=== PATIENT | female | born 1945 | race Caucasian/White ===

== ENCOUNTER 2016-09-15 16:57 | Emergency (ER) | payer MEDICARE, OTHER ==
[2016-09-15] MEDS ORDERED: IBUPROFEN 800 MG TABLET PO STA (19:21)
[2016-09-15] MEDS ORDERED: IBUPROFEN 800 MG TABLET PO ONE (19:21)
== END 2016-09-15 19:25 | disposition home or self-care (01) ==
DX: S20.211A Contusion of right front wall of thorax, initial encounter (principal); S80.01XA Contusion of right knee, initial encounter; S63.642A Sprain of metacarpophalangeal joint of left thumb, initial encounter; W01.0XXA Fall on same level from slipping, tripping and stumbling without subsequent striking against object, initial encounter; Y92.481 Parking lot as the place of occurrence of the external cause; I10 Essential (primary) hypertension; E03.9 Hypothyroidism, unspecified; K21.9 Gastro-esophageal reflux disease without esophagitis; M19.90 Unspecified osteoarthritis, unspecified site; Z79.82 Long term (current) use of aspirin
CPT/HCPCS: 71101; 73110; 73562; 81003; 99283; 99284; A9270

== ENCOUNTER 2016-09-22 15:27 | Outpatient (CLI) | payer MEDICARE, OTHER | END 2016-09-22 15:28 | disposition home or self-care (01) | DX: M50.30 Other cervical disc degeneration, unspecified cervical region (principal); M47.892 Other spondylosis, cervical region; M51.36 Other intervertebral disc degeneration, lumbar region; M47.896 Other spondylosis, lumbar region; M43.16 Spondylolisthesis, lumbar region ==

== ENCOUNTER 2017-05-09 10:52 | Outpatient (CLI) | payer MEDICARE, OTHER ==
--- NOTE | 2017-05-09 12:05 | XRAY Report ---
EXAM: CHEST RADIOGRAPHY EXAM DATE: 05/09/2017 11:20 AM. CLINICAL HISTORY: CHEST PAIN, GERD. COMPARISON: Chest radiograph 09/15/2016. TECHNIQUE: 2 views. FINDINGS: Lungs/Pleura: No focal opacities evident. No pleural effusion. No pneumothorax. Normal volumes. Mediastinum: Stable. Hiatal hernia. Other: None. IMPRESSION: 1. No acute radiographic cardiopulmonary process 2. Hiatal hernia [facility] Referring Provider Line: [phone] SITE ID: [id number]
== END 2017-05-09 10:53 | disposition home or self-care (01) ==
LOC: DI 10:52
PROVIDERS: ATTEND Physician Assistant
DX: R07.9 Chest pain, unspecified (principal); K21.9 Gastro-esophageal reflux disease without esophagitis; Z87.891 Personal history of nicotine dependence; K44.9 Diaphragmatic hernia without obstruction or gangrene
CPT/HCPCS: 71020

== ENCOUNTER 2017-06-30 10:56 | Outpatient (CLI) | payer MEDICARE, OTHER ==
[2017-06-30 11:22] LABS: CREATININE 0.7 mg/dL (0.4-1.0)
[2017-06-30] MEDS ORDERED: IOPAMIDOL-300 100 ML VIAL ONE (11:24)
[2017-06-30] MEDS ORDERED: IOPAMIDOL-300 50 ML VIAL ONE (11:25)
[2017-06-30] MEDS ORDERED: IOPAMIDOL-300 50 ML VIAL PO ONE (13:37)
[2017-06-30] MEDS ORDERED: IOPAMIDOL-300 100 ML VIAL IVP ONE (13:38)
--- NOTE | 2017-06-30 17:16 | CT Report ---
CT OF THE ABDOMEN AND PELVIS WITH CONTRAST: 06/30/2017 CLINICAL INDICATION: Nausea, diarrhea. TECHNIQUE: Axial CT images of the abdomen and pelvis were obtained with 100 mL Isovue 300 intravenously as well as oral contrast. In accordance with CT protocol optimization, one or more of the following dose reduction techniques were utilized for this exam: Automated exposure control, adjustment of mA and/or KV based on patient size, or use of iterative reconstructive technique. No previous CT is available for comparison. FINDINGS: Limited evaluation of the lung bases demonstrates a calcified granuloma at the right base. A moderate hiatal hernia is present. ABDOMEN: The liver, spleen, pancreas, kidneys and adrenal glands are unremarkable. The gallbladder is not dilated. No bowel dilatation, free gas, or free fluid is present. No abdominal adenopathy is seen. PELVIS: Postoperative changes of anterior abdominal wall hernia repair are noted. Postoperative changes of hysterectomy are present. No pelvic adenopathy or free fluid is seen. Sigmoid diverticulosis is present, without CT evidence of diverticulitis. Osseous structures demonstrate degenerative changes. IMPRESSION: MODERATE HIATAL HERNIA. POSTOPERATIVE CHANGES. TD: 06/30/2017 17:14
== END 2017-06-30 10:57 | disposition home or self-care (01) ==
LOC: LAB 10:56
PROVIDERS: ATTEND Physician Assistant
DX: K44.9 Diaphragmatic hernia without obstruction or gangrene (principal)
CPT/HCPCS: 36415; 74177; 82565; Q9967

== ENCOUNTER 2017-07-20 11:34 | Outpatient (CLI) | payer MEDICARE, OTHER ==
--- NOTE | 2017-07-20 16:25 | Nuclear Medicine Report ---
EXAM: BONE SCAN EXAM DATE: 07/20/2017 03:53 PM. CLINICAL HISTORY: BONE PAIN L CHEST, HX BREAST CANCER. COMPARISON: CT abdomen/pelvis 06/30/2017. CT chest 03/25/2009. TECHNIQUE: Following the intravenous administration of 31.2 mCi of technetium 99m MDP and an appropri ate delay, a whole-body scan was performed in anterior and posterior projections. Site-specific spot views of the region of interest were obtained in various projections. FINDINGS: Normal renal radiotracer uptake and bladder activity. Normal soft tissue activity. Overall normal osseous uptake. There is mild focal uptake corresponding to adjacent right anterolateral fifth and sixth ribs, nonspe cific but may be posttraumatic. Mild multilevel lower thoracic and mid to lower lumbar spinal uptake, probably degenerative. Nonspecific mild periprosthetic uptake at the knees. IMPRESSION: 1. No definite scintigraphic evidence of osseous metastasis. 2. Mild focal uptake at the adjacent right anterolateral fifth and sixth ribs, nonspecific but may be posttraumatic. Consider cross-sectional imaging correlation. 3. Multifocal probable degenerative uptake as noted above. [facility] Referring Provider Line: [phone] SITE ID: [id number]
== END 2017-07-20 11:35 | disposition home or self-care (01) ==
LOC: DI 11:34
PROVIDERS: ATTEND Physician Assistant
DX: M89.8X9 Other specified disorders of bone, unspecified site (principal); Z85.3 Personal history of malignant neoplasm of breast
CPT/HCPCS: 78306; A9503

== ENCOUNTER 2020-04-21 16:00 | Outpatient (CLI) | payer MEDICARE, OTHER ==
--- NOTE | 2020-04-21 16:41 | XRAY Report ---
PROCEDURE: Chest 2 View X-Ray INDICATIONS: Dyspnea TECHNIQUE: 2 view(s) of the chest. COMPARISON: 10/17/2013 FINDINGS: Surgical changes and devices: None. Lungs and pleura: Hyperexpanded and flattening the lungs with hyperlucent lung apices indicative of e mphysema. Findings are similar to 10/17/2013 comparison. Lungs are otherwise clear. No pleural effusio n or pneumothorax. Mediastinum: Mediastinal contours are normal. Heart size is normal. Bones and chest wall: No suspicious bony abnormalities. Soft tissues appear unremarkable. IMPRESSION: Findings of mild COPD and emphysema. No acute process. Reviewed by: Ted Ruiz MD on 04/21/2020 4:39 PM PST Approved by: Ted Ruiz MD on 04/21/2020 4:39 PM PST Station ID: [id number]
== END 2020-04-21 16:01 | disposition home or self-care (01) ==
LOC: DI 16:00
PROVIDERS: ATTEND Nurse Practitioner Family
DX: J43.9 Emphysema, unspecified (principal)

== ENCOUNTER 2021-04-26 07:11 | Outpatient (CLI) | payer MEDICARE, OTHER ==
[2021-04-26 15:02] LABS: BASOPHILS % (AUTO) 0.5 %; EOSINOPHILS % (AUTO) 0.5 %; HCT - HEMATOCRIT 40.7 % (37.0-47.0); HGB - HEMOGLOBIN 13.2 g/dL (12.0-16.0); LYMPHOCYTES # (AUTO) 1.4 10^3/uL (1.5-3.5); LYMPHOCYTES % (AUTO) 21.7 %; MEAN CORPUSCULAR HEMOGLOBIN 27.1 pg (27.0-31.0); MEAN CORPUSCULAR HGB CONC 32.4 g/dL (32.0-36.0); MEAN CORPUSCULAR VOLUME 83.6 fL (81.0-99.0); MEAN PLATELET VOLUME 10.6 fL (7.9-10.8); MONOCYTES # (AUTO) 0.5 10^3/uL (0.0-1.0); MONOCYTES % (AUTO) 7.4 %; NEUTROPHILS # (AUTO) 4.6 10^3/uL (1.5-6.6); NEUTROPHILS % (AUTO) 69.7 %; PLT - PLATELET COUNT 316 10^3/uL (130-450); RED BLOOD COUNT 4.87 10^6/uL (4.20-5.40); RED CELL DISTRIBUTION WIDTH 13.7 % (12.0-15.0); WHITE BLOOD COUNT 6.6 x10^3/uL (4.8-10.8)
[2021-04-26 15:26] LABS: ALBUMIN/GLOBULIN RATIO 1.3 (1.0-2.2); BILIRUBIN,TOTAL 0.5 mg/dL (0.2-1.0); CALCIUM 9.6 mg/dL (8.5-10.3); CREATININE 0.7 mg/dL (0.4-1.0); MAGNESIUM 1.7 mg/dL (1.7-2.8); POTASSIUM 3.8 mmol/L (3.5-5.0); TOTAL PROTEIN 7.1 g/dL (6.7-8.2)
[2021-04-26 15:36] LABS: THYROID STIMULATING HORMONE 3.14 uIU/mL (0.34-5.60)
== END 2021-04-26 07:12 | disposition home or self-care (01) ==
LOC: LAB.S 07:11
PROVIDERS: ATTEND Physician Assistant Medical
DX: R00.2 Palpitations (principal)
CPT/HCPCS: 36415; 80053; 83735; 84443; 85025

== ENCOUNTER 2021-05-29 09:03 | Outpatient (CLI) | payer MEDICARE, OTHER ==
[2021-05-29 15:18] LABS: BASOPHILS % (AUTO) 0.5 %; EOSINOPHILS # (AUTO) 0.1 10^3/uL (0.0-0.7); EOSINOPHILS % (AUTO) 1.2 %; HCT - HEMATOCRIT 40.7 % (37.0-47.0); HGB - HEMOGLOBIN 13.3 g/dL (12.0-16.0); LYMPHOCYTES # (AUTO) 1.7 10^3/uL (1.5-3.5); LYMPHOCYTES % (AUTO) 23.6 %; MEAN CORPUSCULAR HEMOGLOBIN 27.2 pg (27.0-31.0); MEAN CORPUSCULAR HGB CONC 32.7 g/dL (32.0-36.0); MEAN CORPUSCULAR VOLUME 83.2 fL (81.0-99.0); MEAN PLATELET VOLUME 10.7 fL (7.9-10.8); MONOCYTES # (AUTO) 0.5 10^3/uL (0.0-1.0); MONOCYTES % (AUTO) 7.4 %; NEUTROPHILS # (AUTO) 4.9 10^3/uL (1.5-6.6); NEUTROPHILS % (AUTO) 66.9 %; PLT - PLATELET COUNT 280 10^3/uL (130-450); RED BLOOD COUNT 4.89 10^6/uL (4.20-5.40); RED CELL DISTRIBUTION WIDTH 14.4 % (12.0-15.0); WHITE BLOOD COUNT 7.3 x10^3/uL (4.8-10.8)
[2021-05-29 15:40] LABS: ALBUMIN/GLOBULIN RATIO 1.2 (1.0-2.2); BILIRUBIN,TOTAL 0.4 mg/dL (0.2-1.0); CALCIUM 9.6 mg/dL (8.5-10.3); CREATININE 0.6 mg/dL (0.4-1.0); POTASSIUM 3.7 mmol/L (3.5-5.0); TOTAL PROTEIN 7.3 g/dL (6.7-8.2)
[2021-05-29 22:09] LABS: ESTIMATED AVERAGE GLUCOSE 126 mg/dL (70-100)
== END 2021-05-29 09:04 | disposition home or self-care (01) ==
LOC: LAB.S 09:03
PROVIDERS: ATTEND Internal Medicine
DX: R74.8 Abnormal levels of other serum enzymes (principal); R73.01 Impaired fasting glucose; L08.9 Local infection of the skin and subcutaneous tissue, unspecified
CPT/HCPCS: 36415; 80053; 83036; 85025

== ENCOUNTER 2021-09-12 08:00 | Outpatient (CLI) | payer MEDICARE, OTHER ==
--- NOTE | 2021-09-12 13:11 | XRAY Report ---
PROCEDURE: Shoulder 3 View RT INDICATIONS: PAIN IN RIGHT SHOULDER TECHNIQUE: 3 views of the shoulder were acquired. COMPARISON: None. FINDINGS: Bones: No fractures or dislocations. No suspicious bony lesions. Visualized ribs appear intact. M ild glenohumeral joint space narrowing Soft tissues: No suspicious soft tissue calcifications. IMPRESSION: Mild osteoarthritis without fracture or dislocation Reviewed by: Dax Hoang MD on 09/12/2021 12:09 PM [facility] Approved by: Dax Hoang MD on 09/12/2021 12:09 PM [facility] Station ID: [id number]
== END 2021-09-12 23:59 | disposition home or self-care (01) ==
LOC: DI.S 08:00
PROVIDERS: ATTEND Registered Nurse
DX: M19.011 Primary osteoarthritis, right shoulder (principal)

== ENCOUNTER 2021-12-14 10:14 | Emergency (ER) | payer MEDICARE, OTHER ==
--- OUTSIDE RECORDS SUMMARY | 2021-12-14 10:27 | EXTERNAL MEDICAL SUMMARY RPT | Continuity of Care Document ---
:1945 Author Organization [facility] Address [address] [place] [address] Phone Allergies No information. Encounters No information. Functional Status No information. Immunizations No information. Medications date description facility [id number] esomeprazole magnesium [facility] [id number]+0000 clindamycin hcl [facility] [place] [id number]+0000 gabapentin [facility] [phone]+0000 gabapentin [facility] [place] [phone]+0000 gabapentin [facility] [phone]+0000 gabapentin [facility] [place] [phone]+0000 sertraline [facility] [phone]+0000 sertraline [facility] [place] [phone]+0000 gabapentin [facility] [phone]+0000 gabapentin [facility] [place] [phone]+0000 gabapentin [facility] [phone]+0000 gabapentin [facility] [phone]+0000 esomeprazole magnesium [facility] [phone]+0000 clindamycin hcl [facility] Problems No information. Procedures date description facility [id number] Visit Code Hold [facility] [place] [phone]+0000 Visit Code Hold [facility] [place] [phone]+0000 Visit Code Hold [facility] [place] Results/Labs No information. Social History date description facility +0000 Former smoker [facility] [place] [phone] Former smoker [facility] Vital Signs date measurement value units [id number]+0000 BMI BMI 29.97 kg/m2 52301904383127+0000 BP_diastolic BP_diastolic 70 mm[H g] 54630783441837+0000 BP_systolic BP_systolic 133 mm[Hg] 62341721656686+0000 heart_rate heart_rate 70 /min 40207746450343+0000 height_metric height_metric 162.56 cm 99961381884744+0000 height_standard height_standard 64 in [id number]+0000 respiration_rate respiration_rate 16 /min [id number]+0000 temperature_metric temperature_metric 36.5 C [id number]+0000 temperature_standard temperature_standard 9 7.7 F 57188305613429+0000 weight_metric weight_metric 78.93 kg 51169400633195+0000 weight_standard weight_standard 174 lb [id number]+0000 BMI BMI 29.97 kg/m2 62494204080110+0000 BP_diastolic BP_diastolic 71 mm[H g] 71960511514427+0000 BP_systolic BP_systolic 138 mm[Hg] 30366043301928+0000 heart_rate heart_rate 65 /min 25418101990869+0000 height_metric height_metric 162.56 cm 35423352462237+0000 height_standard height_standard 64 in 49938303148753+0000 respiration_rate respiration_rate 16 /min 49468586183103+0000 temperature_metric temperature_metric 36.56 C 42983032056086+0000 temperature_standard temperature_standard 9 7.8 F 65731002064942+0000 weight_metric weight_metric 78.93 kg 77322392294810+0000 weight_standard weight_standard 174 lb
--- NOTE | 2021-12-14 13:13 | ED Physician Documentation ---
History of Present Illness - Stated complaint Stated Complaint: LT EYE SWELLING - Chief complaint Chief Complaint: Heent - Additonal information Additional information: 76-year-old female comes to the emergency department for evaluation of worsening left eye redness and swelling. She went to a local walk-in clinic yesterday and was given injection of likely ceftriaxone followed by prescription for clindamycin for what was thought to be Silver orbital cellulitis. Despite taking 3 doses of clindamycin and using warm compress she is having worsening erythema. She has an obvious stye on the upper lid. No history of similar. No fevers. Extraocular movements are preserved but she does have some pain with eye movement. No loss of vision or vision changes Review of Systems Constitutional: denies: Fever, Chills Eyes: reports: Other (Left periorbital erythema stye on the left upper lobe). denies: Loss of vision, Decreased vision Ears: reports: Reviewed and negative Nose: reports: Reviewed and negative Throat: reports: Reviewed and negative Cardiac: reports: Reviewed and negative Respiratory: reports: Reviewed and negative GI: reports: Reviewed and negative : reports: Reviewed and negative Skin: reports: Reviewed and negative PD PAST MEDICAL HISTORY - Past Medical History Cardiovascular: Hypertension, Murmur Respiratory: Pneumonia, Other Endocrine/Autoimmune: HyPOthyroidism, Other GI: GERD, Diverticulitis : Frequency HEENT: Other Psych: Depression, Anxiety Musculoskeletal: Osteoarthritis, Chronic back pain, Other Derm: Other - Past Surgical History General: Appendectomy, Colonoscopy Ortho: Knee replacement /[employer]: Dilation and currettage, Tubal ligation, Mastectomy HEENT: Cataracts, Other - Present Medications Home Medications: Ambulatory Orders Medication Instructions Recorded Confirmed Aspirin [Children's Aspirin] 81 mg PO DAILY 10/22/12 08/07/17 Cholecalciferol (Vitamin D3) 50,000 unit PO DAILY 10/22/12 08/07/17 [Vitamin D] Gabapentin [Neurontin] 1,200 mg PO HS 10/22/12 08/07/17 Levothyroxine [Synthroid] 0.125 mcg PO QDAC 10/22/12 08/07/17 Loratadine [Claritin] 10 mg PO DAILY 10/22/12 08/07/17 Lorazepam 0.5 mg PO DAILY 10/22/12 08/07/17 Omeprazole [Prilosec] 40 mg PO BID 10/22/12 08/07/17 Telmisartan [Micardis] 40 mg PO DAILY 10/22/12 08/07/17 Sertraline [Zoloft] 100 mg PO DAILY 10/22/14 08/07/17 Clindamycin [Cleocin] 450 mg PO TID #63 cap 12/14/21 - Allergies Allergies/Adverse Reactions: Allergies Allergy/AdvReac Type Severity Reaction Status Date / Time doxycycline Allergy Severe Anaphylaxis Verified 09/15/16 19:14 Sulfa (Sulfonamide Allergy Severe Hives Verified 09/15/16 19:14 Antibiotics) morphine AdvReac Intermediate Rash Verified 09/15/16 19:14 - Social History Does the pt smoke?: No Smoking Status: Never smoker Does the pt drink ETOH?: No Does the pt have substance abuse?: No - Immunizations Immunizations are current?: Yes PD ED PE EXPANDED - General General: Alert, No acute distress, Well developed/nourished - HEENT HEENT: PERRL, EOMI - Eyes Eyes: Eyelid swelling (Stye on the left mid upper lid. Generalized erythema swelling and mild induration around the left orbit. Extraocular movements norm al. Mild tenderness with palpation of the eye but the globe remained soft. PERRLA.), Eyelid erythema, Nl conjunctiva/sclera. No: Exudate - Cardiac Cardiac: Regular Rate, Radial strong equal, Pedal strong equal, Cap refill < 2 sec - Respiratory Respiratory: Clear to ausultation nevin. No: Distress, Labored - Abdomen Abdomen: Normal Bowel sounds - Neuro Neuro: Alert and Oriented X 3, CNII-XII intact - GCS Eye Opening: Spontaneous Motor: Obeys Commands Verbal: Oriented Total: 15 Results - Vitals Vitals: Vital Signs - 24 hr 12/14/21 12/14/21 10:27 14:30 Temperature 37.2 C Heart Rate 74 70 Respiratory 18 19 Rate Blood Pressure 150/71 H 137/57 H O2 Saturation 97 95 Oxygen O2 Source Room air - Labs Labs: Laboratory Tests 12/14/21 12/14/21 12/14/21 13:11 13:11 13:11 WBC 8.7 RBC 4.50 Hgb 12.5 Hct 37.8 MCV 84.0 MCH 27.8 MCHC 33.1 RDW 13.4 Plt Count 257 MPV 9.6 Neut # (Auto) 6.5 Lymph # (Auto) 1.5 [place] # (Auto) 0.6 Eos # (Auto) 0.1 Baso # (Auto) 0.0 Absolute Nucleated RBC 0.00 Nucleated RBC % 0.0 Sodium 132 L Potassium 4.5 Chloride 95 L Carbon Dioxide 27 Anion Gap 10.0 BUN 21 H Creatinine 0.7 Estimated GFR (MDRD) 82 L Glucose 98 Calcium 9.9 Total Bilirubin 0.3 AST 32 ALT 22 Alkaline Phosphatase 61 C-Reactive Protein < 1.0 Total Protein 7.4 Albumin 4.2 Globulin 3.2 Albumin/Globulin Ratio 1.3 Lipase 39 Procalcitonin < 0.05 - Rads (name of study) CT max/fac Radiology: Final report received (Preseptal cellulitis of the left periorbital soft tissues. No organized fluid collection seen. No evidence for post septal or orbital cellulitis) PD MEDICAL DECISION MAKING - ED course Complexity details: reviewed results, re-evaluated patient, considered differential, d/w patient ED course: Well-appearing 76-year-old female presents emergency department for evaluation of worsening swelling and erythema to the left eye. Seen by local walk-in clinic provider yesterday thought to have preseptal cellulitis and started on clindamycin 300 mg 3 times daily. Despite taking 3 doses of this she has had increased swelling and erythema. Screening labs today showed no leukocytosis, elevated CRP or procalcitonin. A maxillofacial CT also does not show septal or orbital cellulitis. The imaging is consistent with a preseptal cellulitis. In reading current up-to-date recommendations and given the patient's history of allergies to sulfa and doxycycline we will increase her dose of clindamycin to 450 mg 3 times daily. She is advised take a daily probiotic or yogurt. Also advised warm compress 3 times a day. Emergent return precautions were discussed for failure symptoms to resolve. Departure - Departure Disposition: 01 Home, Self Care Clinical Impression: Preseptal cellulitis of left eye Condition: Stable Record reviewed to determine appropriate education?: Yes Prescriptions: Clindamycin [Cleocin] 450 mg PO TID #63 cap Comments: Dominique the CT scan today shows that you have preseptal cellulitis or bacterial infection around your eye. However the CT does not show infection behind the eye. This is very important. I would like you to begin placing a warm compress for 10 minutes over the left eye 3 times a day. I think that we should increase your dose of clindamycin to 450 mg 3 times daily for the next week. Often it takes 48 to 72 hours of antibiotics before we begin to see improvement in symptoms. If despite the new antibiotic regimen and the warm compress you continue to have worsening symptoms do not hesitate to return immediately to the ER for a second evaluation.
[2021-12-14 13:15] LABS: BASOPHILS % (AUTO) 0.3 %; EOSINOPHILS # (AUTO) 0.1 10^3/uL (0.0-0.7); EOSINOPHILS % (AUTO) 0.6 %; HCT - HEMATOCRIT 37.8 % (37.0-47.0); HGB - HEMOGLOBIN 12.5 g/dL (12.0-16.0); LYMPHOCYTES # (AUTO) 1.5 10^3/uL (1.5-3.5); LYMPHOCYTES % (AUTO) 17.2 %; MEAN CORPUSCULAR HEMOGLOBIN 27.8 pg (27.0-31.0); MEAN CORPUSCULAR HGB CONC 33.1 g/dL (32.0-36.0); MEAN PLATELET VOLUME 9.6 fL (7.9-10.8); MONOCYTES # (AUTO) 0.6 10^3/uL (0.0-1.0); MONOCYTES % (AUTO) 6.6 %; NEUTROPHILS # (AUTO) 6.5 10^3/uL (1.5-6.6); PLT - PLATELET COUNT 257 10^3/uL (130-450); RED CELL DISTRIBUTION WIDTH 13.4 % (12.0-15.0); WHITE BLOOD COUNT 8.7 x10^3/uL (4.8-10.8)
[2021-12-14 13:36] LABS: ALBUMIN 4.2 g/dL (3.2-5.5); ALBUMIN/GLOBULIN RATIO 1.3 (1.0-2.2); ALKALINE PHOSPHATASE 61 IU/L (42-121); ALT ALANINE AMINOTRANSFERASE 22 IU/L (10-60); AST ASPARTATE AMINOTRANSFERASE 32 IU/L (10-42); BILIRUBIN,TOTAL 0.3 mg/dL (0.2-1.0); BUN - BLOOD UREA NITROGEN 21 mg/dL (6-20); CALCIUM 9.9 mg/dL (8.5-10.3); CARBON DIOXIDE - CO2 27 mmol/L (21-32); CHLORIDE 95 mmol/L (101-111); CREATININE 0.7 mg/dL (0.4-1.0); GFR - MDRD 82 (>89); GLUCOSE 98 mg/dL (70-100); LIPASE 39 U/L (22-51); POTASSIUM 4.5 mmol/L (3.5-5.0); SODIUM 132 mmol/L (135-145); TOTAL PROTEIN 7.4 g/dL (6.7-8.2)
[2021-12-14 13:37] LABS: CRP - C-REACTIVE PROTEIN < 1.0 mg/dL (0-1.0)
--- NOTE | 2021-12-14 14:48 | CT Report ---
PROCEDURE: MAXILLOFACIAL W INDICATIONS: perorbital swelling; r/o orbital cellulitis CONTRAST: IV CONTRAST: Optiray 320 ml: 100 PO CONTRAST: *NO PO CONTRAST TECHNIQUE: After the administration of intravenous contrast, 3.0 mm axial sections acquired from the mid-neck to the frontal sinuses, with coronal reformatting. For radiation dose reduction, the following was use d: automated exposure control, adjustment of mA and/or kV according to patient size. COMPARISON: None. FINDINGS: Image quality: Excellent. Soft tissues: There is moderate soft tissue edema involving the left periorbital region predominantly centered over the inferior aspect of the lower eyelid. No organized fluid collection seen. No eviden ce for inflammatory changes extending posterior to the orbital septum. No suspicious mass lesion. The re is mild skin thickening in the area of inflammation. Visualized orbits and globes appear unremarka ble No enlarged lymph nodes. Vascular: Visualized vascular structures appear patent throughout. Bony vascular foramina and canal s appear normal. Bones: Facial bones appear intact, without fractures, erosions, or destruction. Visualized portions of the skull base and auditory canals also appear normal. Sinuses: Paranasal sinuses are aerated without fluid levels, mucosal thickening, or mucoceles. Mast oid air cells are aerated. IMPRESSION: Preseptal cellulitis of the left periorbital soft tissues. No organized fluid collection seen. No olaf dence for post septal/orbital cellulitis. Reviewed by: Brett Edwards MD on 12/14/2021 2:47 PM PDT Approved by: Brett Edwards MD on 12/14/2021 2:47 PM PDT Station ID: [id number]
[2021-12-14 15:42] VITALS: BP 127/60
== END 2021-12-14 15:41 | disposition home or self-care (01) ==
LOC: ED 10:14
DX: L03.213 Periorbital cellulitis (principal)
CPT/HCPCS: 36415; 70487; 80053; 83690; 84145; 85025; 86140; 99282; 99284; Q9967

== ENCOUNTER 2022-01-17 13:20 | Outpatient (CLI) | payer MEDICARE, OTHER ==
[2022-01-17 19:08] LABS: CHOL/HDL RATIO 3.4 (<4.4); CHOLESTEROL 238 mg/dL; HDL CHOLESTEROL 70 mg/dL; LDL CHOLESTEROL,CALCULATED 126 mg/dL; LDL/HDL RATIO 1.8 (<4.4); TRIGLYCERIDES 208 mg/dL; VLDL CHOLESTEROL 42 mg/dL
== END 2022-01-17 13:21 | disposition home or self-care (01) ==
LOC: LAB.S 13:20
PROVIDERS: ATTEND Registered Nurse
DX: E78.5 Hyperlipidemia, unspecified (principal)
CPT/HCPCS: 36415; 80061; 83721

== ENCOUNTER 2022-02-23 07:16 | Outpatient (CLI) | payer MEDICARE, OTHER ==
[2022-02-23 15:07] LABS: CALCIUM 9.4 mg/dL (8.5-10.3); CREATININE 0.7 mg/dL (0.4-1.0); POTASSIUM 4.1 mmol/L (3.5-5.0)
[2022-02-23 15:26] LABS: THYROID STIMULATING HORMONE 3.31 uIU/mL (0.34-5.60)
[2022-02-23 20:11] LABS: ESTIMATED AVERAGE GLUCOSE 117 mg/dL (70-100); HEMOGLOBIN A1c% 5.7 % (4.27-6.07)
== END 2022-02-23 07:17 | disposition home or self-care (01) ==
LOC: LAB.S 07:16
PROVIDERS: ATTEND Registered Nurse
DX: E03.9 Hypothyroidism, unspecified (principal); R73.9 Hyperglycemia, unspecified; R73.01 Impaired fasting glucose
CPT/HCPCS: 36415; 80048; 83036; 84443

== ENCOUNTER 2022-06-24 07:00 | Outpatient (CLI) | payer MEDICARE, OTHER ==
--- NOTE | 2022-06-25 01:45 | XRAY Report ---
PROCEDURE: Ribs w/PA Chest LT INDICATIONS: CONTUSION LEFT FRONT WALL THORAX TECHNIQUE: 3 views of the left ribs were acquired, along with a single view chest. COMPARISON: Chest x-ray 04/21/2020 FINDINGS: Surgical changes and devices: None. Bones and chest wall: No fractures or dislocations. No suspicious bony lesions. Overlying soft tis sues appear unremarkable. Lungs and pleura: No pleural effusions or pneumothorax. There is hyperinflation of the lungs with f lattening of the hemidiaphragms compatible with COPD. No acute consolidation. Mediastinum: Mediastinal contours appear normal. Heart size is normal. IMPRESSION: 1. No displaced rib fracture identified. Reviewed by: Elmo Schultz MD on 06/25/2022 1:54 AM PST Approved by: Elmo Schultz MD on 06/25/2022 1:54 AM [facility] Station ID: [id number]
== END 2022-06-24 23:59 | disposition home or self-care (01) ==
LOC: DI.S 07:00
PROVIDERS: ATTEND Emergency Medicine
DX: S20.212A Contusion of left front wall of thorax, initial encounter (principal)

== ENCOUNTER 2022-12-14 08:16 | Outpatient (CLI) | payer MEDICARE, OTHER ==
[2022-12-14 15:03] LABS: BASOPHILS # (AUTO) 0.1 10^3/uL (0.0-0.1); BASOPHILS % (AUTO) 0.9 %; EOSINOPHILS # (AUTO) 0.2 10^3/uL (0.0-0.7); HCT - HEMATOCRIT 39.6 % (37.0-47.0); HGB - HEMOGLOBIN 12.2 g/dL (12.0-16.0); LYMPHOCYTES # (AUTO) 1.7 10^3/uL (1.5-3.5); MEAN CORPUSCULAR HEMOGLOBIN 26.8 pg (27.0-31.0); MEAN CORPUSCULAR HGB CONC 30.8 g/dL (32.0-36.0); MEAN PLATELET VOLUME 9.7 fL (7.9-10.8); MONOCYTES # (AUTO) 0.4 10^3/uL (0.0-1.0); MONOCYTES % (AUTO) 7.6 %; NEUTROPHILS # (AUTO) 2.9 10^3/uL (1.5-6.6); NEUTROPHILS % (AUTO) 54.9 %; PLT - PLATELET COUNT 268 10^3/uL (130-450); RED BLOOD COUNT 4.55 10^6/uL (4.20-5.40); RED CELL DISTRIBUTION WIDTH 14.9 % (12.0-15.0); WHITE BLOOD COUNT 5.3 x10^3/uL (4.8-10.8)
[2022-12-14 15:26] LABS: CALCIUM 9.6 mg/dL (8.5-10.3); CREATININE 0.7 mg/dL (0.6-1.3); CRP - C-REACTIVE PROTEIN 0.7 mg/dL (<0.5); POTASSIUM 4.3 mmol/L (3.5-4.5)
[2022-12-14 15:37] LABS: RHEUMATOID FACTOR NEGATIVE (Negative)
[2022-12-17 17:08] LABS: ANTINUCLEAR ANTIBODIES IFA Negative (.)
== END 2022-12-14 08:17 | disposition home or self-care (01) ==
LOC: LAB.S 08:16
PROVIDERS: ATTEND Emergency Medicine
DX: R07.9 Chest pain, unspecified (principal); M19.90 Unspecified osteoarthritis, unspecified site
CPT/HCPCS: 36415; 80048; 85025; 85651; 86038; 86140; 86430

== ENCOUNTER 2023-05-04 09:34 | Outpatient (CLI) | payer MEDICARE, OTHER ==
[2023-05-04 10:10] LABS: ALBUMIN 4.1 g/dL (3.2-5.5); ALBUMIN/GLOBULIN RATIO 1.4 (1.0-2.2); ALKALINE PHOSPHATASE 83 IU/L (42-121); ALT ALANINE AMINOTRANSFERASE 20 IU/L (10-60); AST ASPARTATE AMINOTRANSFERASE 23 IU/L (10-42); BILIRUBIN,TOTAL 0.3 mg/dL (0.2-1.0); BUN - BLOOD UREA NITROGEN 19 mg/dL (6-20); CALCIUM 9.9 mg/dL (8.5-10.3); CARBON DIOXIDE - CO2 34 mmol/L (21-32); CHLORIDE 97 mmol/L (101-111); CHOL/HDL RATIO 2.6 (<4.4); CHOLESTEROL 158 mg/dL; CREATININE 0.8 mg/dL (0.6-1.3); GFR - MDRD 70 (>89); GLUCOSE 124 mg/dL (74-104); HDL CHOLESTEROL 61 mg/dL; LDL CHOLESTEROL,CALCULATED 55 mg/dL; LDL/HDL RATIO 0.9 (<4.4); POTASSIUM 4.2 mmol/L (3.5-4.5); SODIUM 135 mmol/L (135-145); TRIGLYCERIDES 212 mg/dL (48-352); VLDL CHOLESTEROL 42 mg/dL
== END 2023-05-04 09:35 | disposition home or self-care (01) ==
LOC: LAB 09:34
PROVIDERS: ATTEND Internal Medicine Cardiovascular Disease
DX: Z13.228 Encounter for screening for other metabolic disorders (principal)
CPT/HCPCS: 36415; 80053; 80061; 83721

== ENCOUNTER 2023-07-19 08:00 | Outpatient (CLI) | payer MEDICARE, OTHER ==
--- NOTE | 2023-07-19 17:39 | XRAY Report ---
PROCEDURE: Chest 2V INDICATIONS: ACUTE COUGH TECHNIQUE: 2 views of the chest were acquired. COMPARISON: 06/24/2022 FINDINGS: Surgical changes and devices: None. Lungs and pleura: Mild to moderate peribronchial opacities. No pleural effusion or dense airspace co nsolidation. Mediastinum: Cardiomediastinal contours are unchanged. Heart size is at the upper limit of normal. T here are aortic calcifications. Bones and chest wall: Degenerative changes. IMPRESSION: Mild to moderate peribronchial opacities likely representing atypical infection or edema. Consider fu ture imaging surveillance to assess for resolution. Reviewed by: Mauricio Wetzel MD on 07/19/2023 5:38 PM PST Approved by: Mauricio Wetzel MD on 07/19/2023 5:38 PM PST Station ID: [id number]
== END 2023-07-19 23:59 | disposition home or self-care (01) ==
LOC: DI.S 08:00
PROVIDERS: ATTEND Registered Nurse
DX: R91.8 Other nonspecific abnormal finding of lung field (principal)

== ENCOUNTER 2023-07-19 08:00 | Outpatient (CLI) | payer MEDICARE, OTHER | END 2023-07-19 08:01 | disposition home or self-care (01) | LOC: LAB.S 08:00 | PROVIDERS: ATTEND Registered Nurse | DX: R05.1 Acute cough (principal); R09.89 Other specified symptoms and signs involving the circulatory and respiratory systems ==

== ENCOUNTER 2023-07-20 14:28 | Outpatient (CLI) | payer MEDICARE, OTHER ==
[2023-07-20 20:16] LABS: CALCIUM 9.9 mg/dL (8.5-10.3); CREATININE 0.9 mg/dL (0.6-1.3); POTASSIUM 4.1 mmol/L (3.5-4.5)
== END 2023-07-20 14:29 | disposition home or self-care (01) ==
LOC: LAB.S 14:28
PROVIDERS: ATTEND Registered Nurse
DX: R82.998 Other abnormal findings in urine (principal)
CPT/HCPCS: 36415; 80048; 82550

== ENCOUNTER 2023-07-30 13:48 | Emergency (ER) | payer MEDICARE, OTHER ==
--- NOTE | 2023-07-30 16:59 | ED Physician Documentation ---
PD HPI UPPER EXT INJURY - Stated complaint Stated Complaint: LT ARM DOG BITE - Chief complaint Chief Complaint: Wound - History obtained from History obtained from: Patient - Additonal information Additional information: This is a prerna 78-year-old woman who around 1130 this morning was [facility] and has 2 wounds on the left arm. Tetanus is unknown. She does have a significant allergy to amoxicillin and doxycycline. PD PAST MEDICAL HISTORY - Past Medical History Cardiovascular: Hypertension, Murmur Respiratory: Pneumonia, Other Endocrine/Autoimmune: HyPOthyroidism, Other GI: GERD, Diverticulitis : Frequency HEENT: Other Psych: Depression, Anxiety Musculoskeletal: Osteoarthritis, Chronic back pain, Other Derm: Other - Past Surgical History General: Appendectomy, Colonoscopy Ortho: Knee replacement /[employer] ARTIST: Dilation and currettage, Tubal ligation, Mastectomy HEENT: Cataracts, Other - Present Medications Home Medications: Ambulatory Orders Medication Instructions Recorded Confirmed Aspirin [Children's Aspirin] 81 mg PO DAILY 10/22/12 07/30/23 Cholecalciferol (Vitamin D3) 50,000 unit PO DAILY 10/22/12 07/30/23 [Vitamin D] Gabapentin [Neurontin] 1,200 mg PO HS 10/22/12 07/30/23 Levothyroxine [Synthroid] 0.125 mcg PO QDAC 10/22/12 07/30/23 Sertraline [Zoloft] 100 mg PO DAILY 10/22/14 07/30/23 Buspirone HCl 10 mg PO TID 07/30/23 07/30/23 Ciprofloxacin HCl [Cipro] 500 mg PO BID #6 tablet 07/30/23 Fluticasone Propionate 50 mcg INH DAILY 07/30/23 07/30/23 Furosemide [Lasix] 40 mg PO TID 07/30/23 07/30/23 Isosorbide Mononitrate ER [Imdur] 30 mg PO DAILY 07/30/23 07/30/23 Lisinopril [Zestril] 2.5 mg PO DAILY 07/30/23 07/30/23 Metoprolol Tartrate [Lopressor] 25 mg PO DAILY 07/30/23 07/30/23 Pantoprazole [Protonix] 40 mg PO HS 07/30/23 07/30/23 Valacyclovir HCl [Valtrex] 500 mg PO BID 07/30/23 07/30/23 - Allergies Allergies/Adverse Reactions: Allergies Allergy/AdvReac Type Severity Reaction Status Date / Time doxycycline Allergy Severe Anaphylaxis Verified 07/30/23 13:58 Sulfa (Sulfonamide Allergy Severe Hives Verified 07/30/23 13:58 Antibiotics) amoxicillin [From Augmentin] Allergy Emesis Verified 07/30/23 13:58 clavulanic acid Allergy Emesis Verified 07/30/23 13:58 [From Augmentin] - Social History Does the pt smoke?: No Smoking Status: Never smoker Does the pt drink ETOH?: No Does the pt have substance abuse?: No - Immunizations Immunizations are current?: Yes PD ED PE NORMAL - Vitals Vital signs reviewed: Yes - General General: Alert and oriented X 3, No acute distress - Back Back: No CVA TTP, No spinal TTP - Derm Derm: Normal color, Warm and dry - Extremities Extremities: Other (There is a puncture wound of about 1 cm in the mid distal dorsal forearm. Full range of motion and normal neurovascular function distally. It is somewhat gaping) - Neuro Neuro: Alert and oriented X 3 Results - Vitals Vitals: Vital Signs - 24 hr 07/30/23 07/30/23 13:53 17:05 Temperature 36.1 C L Heart Rate 91 94 Respiratory 16 18 Rate Blood Pressure 108/51 L 115/64 O2 Saturation 100 99 Oxygen O2 Source Room air Procedures - Laceration (location) L forearm Length in cm: 1 Wound type: Linear Neurovascular status: Sensory intact, Motor intact, Vascular intact Anesthesia: Lidocaine 1% Wound preparation: Hibiclens, Irrigated copiously NS Skin layer closure: Nylon, Interrupted, Size #-0 - enter number (4-0), Sutures - enter # (1) Other: Patient tolerated well, No complications, Neurovascular intact, Tetanus UTD PD Medical Decision Making - ED course ED course: There is 1 wound on the wrist is very minor. There is a mid forearm wound that was gaping and did require 1 suture after extensive irrigation. She is allergic to Augmentin, review of the literature and antibiogram for Pasteurella would suggest that Cipro would be okay. Departure - Departure Disposition: 01 Home, Self Care Clinical Impression: Animal bite with open wound Condition: Good Record reviewed to determine appropriate education?: Yes Instructions: ED Bite Animal General Prescriptions: Ciprofloxacin HCl [Cipro] 500 mg PO BID #6 tablet Comments: I sent the prescription for antibiotics electronically to the [facility] in [place]. Come back for any signs of infection which would include: Redness, swelling, drainage, increased pain, or fevers. You can wash it soap and water. Keep it covered and moist with bacitracin ointment which is available over the counter; avoid neosporin. Follow-up with your physician in 14 days for suture removal. Forms: PCP List Discharge Date/Time: 07/30/23 17:27
[2023-07-30 17:14] VITALS: BP 115/64; O2SAT 99
[2023-07-30] MEDS: TETANUS/DIPHTHERIA/PERTUSSIS 0.5 ML SYRINGE IM ONE (17:20)
[2023-07-30] MEDS: CIPROFLOXACIN 250 MG TABLET PO STA (17:20)
== END 2023-07-30 17:27 | disposition home or self-care (01) ==
LOC: ED 13:48
DX: S51.852A Open bite of left forearm, initial encounter (principal); W54.0XXA Bitten by dog, initial encounter; Z23 Encounter for immunization
CPT/HCPCS: 12001; 90471; 90715; 99282; A9270

== ENCOUNTER 2023-08-02 14:33 | Outpatient (CLI) | payer MEDICARE, OTHER ==
[2023-08-02 20:08] LABS: CALCIUM 9.7 mg/dL (8.5-10.3); CREATININE 0.8 mg/dL (0.6-1.3); POTASSIUM 3.9 mmol/L (3.5-4.5)
== END 2023-08-02 14:34 | disposition home or self-care (01) ==
LOC: DI.S 14:33
PROVIDERS: ATTEND Registered Nurse
DX: R74.8 Abnormal levels of other serum enzymes (principal); R82.998 Other abnormal findings in urine
CPT/HCPCS: 36415; 80048; 82550

== ENCOUNTER 2023-11-16 12:14 | Outpatient (CLI) | payer MEDICARE, OTHER | END 2023-11-16 12:15 | disposition home or self-care (01) | LOC: LAB 12:14 | PROVIDERS: ATTEND Registered Nurse | DX: E78.5 Hyperlipidemia, unspecified (principal) | CPT/HCPCS: 80061; 83721 ==

== ENCOUNTER 2023-11-21 14:46 | Outpatient (CLI) | payer MEDICARE, OTHER ==
--- NOTE | 2023-11-21 16:13 | DEXA Report ---
PROCEDURE: Dexa Spine and/or Hip INDICATIONS: POST MENOPAUSAL TECHNIQUE: Dual energy x-ray absorptiometry (DXA) was performed on a [employer]. Regions measur ed are the AP Spine, femoral neck, and if needed forearm. COMPARISON: No prior studies available for review FINDINGS: Lumbar Spine: Bone Mineral Density: 1.273 g/cm/cm,T score: 0.8. Left Femoral Neck: Bone Mineral Density: 0.758 g/cm/cm, T score: -2.0. Left Hip: Bone Mineral Density: 0.901 g/cm/cm,T score: -0.8. (T score greater or equal to -1.0: NORMAL) (T score from -1.1 to -2.4: OSTEOPENIA) (T score less than or equal to -2.5 to: OSTEOPOROSIS) Impression: By WHO criteria, this patient has low bone density (osteopenia). Patients with diagnosis of osteoporosis or osteopenia should have regular bone mineral density assess ment. For those eligible for Medicare, routine testing is allowed once every 2 years. Testing frequ ency can be increased for patients who have rapidly progressing disease or for those who are receivin g medical therapy to restore bone mass. Reviewed by: Brett Edwards MD on 11/21/2023 4:12 PM PDT Approved by: Brett Edwards MD on 11/21/2023 4:12 PM PDT Station ID: [id number]
== END 2023-11-21 14:47 | disposition home or self-care (01) ==
LOC: DI 14:46
PROVIDERS: ATTEND Registered Nurse
DX: M85.88 Other specified disorders of bone density and structure, other site (principal); Z78.0 Asymptomatic menopausal state

== ENCOUNTER 2024-01-15 11:41 | Outpatient (CLI) | payer MEDICARE, OTHER ==
[2024-01-15 16:40] LABS: CHOL/HDL RATIO 3.7 (<4.4); CHOLESTEROL 188 mg/dL; HDL CHOLESTEROL 51 mg/dL; LDL CHOLESTEROL,CALCULATED 106 mg/dL; LDL/HDL RATIO 2.1 (<4.4); TRIGLYCERIDES 155 mg/dL; VLDL CHOLESTEROL 31 mg/dL
== END 2024-01-15 11:42 | disposition home or self-care (01) ==
LOC: LAB.S 11:41
PROVIDERS: ATTEND Registered Nurse
DX: E78.5 Hyperlipidemia, unspecified (principal)
CPT/HCPCS: 36415; 80061; 83721

== ENCOUNTER 2024-01-31 09:41 | Outpatient (CLI) | payer MEDICARE, OTHER ==
[2024-01-31 15:51] LABS: CALCIUM 9.8 mg/dL (8.5-10.3); CREATININE 0.9 mg/dL (0.6-1.3); POTASSIUM 3.8 mmol/L (3.5-4.5)
== END 2024-01-31 09:42 | disposition home or self-care (01) ==
LOC: LAB.S 09:41
PROVIDERS: ATTEND Internal Medicine Cardiovascular Disease
DX: I51.89 Other ill-defined heart diseases (principal)
CPT/HCPCS: 36415; 80048

== ENCOUNTER 2024-02-15 13:54 | Outpatient (CLI) | payer MEDICARE, OTHER | END 2024-02-15 13:55 | disposition home or self-care (01) | LOC: DI 13:54 | PROVIDERS: ATTEND Registered Nurse | DX: R00.0 Tachycardia, unspecified (principal); R06.02 Shortness of breath | CPT/HCPCS: 93307 ==